=== PATIENT | female | born 1950 | race Caucasian/White ===

== ENCOUNTER 2022-10-29 09:43 | Outpatient (CLI) | payer MEDICARE, BC | END 2022-10-29 09:44 | disposition home or self-care (01) | LOC: CSHCT 09:43 | PROVIDERS: ATTEND Internal Medicine Critical Care Medicine | DX: Z12.2 Encounter for screening for malignant neoplasm of respiratory organs (principal); F17.210 Nicotine dependence, cigarettes, uncomplicated | CPT/HCPCS: 71271 ==